=== PATIENT | female | born 1945 | race Caucasian/White ===

== ENCOUNTER 2017-12-26 07:48 | Outpatient (CLI) | payer MEDICARE ==
--- NOTE | 2018-01-01 12:26 | NM ---
RADIOIODINE THYROID SCAN AND UPTAKE: HISTORY: Nontoxic single thyroid nodule. RADIOPHARMACEUTICAL: 260 microcuries Iodine-123 administered orally. FINDINGS: Planar anterior and both anterior oblique images of the thyroid gland were obtained. No focal hot or cold nodules are seen. The 24 hour uptake measures 21% (normal 10-30%). IMPRESSION: No significant abnormalities are seen. Further evaluation with thyroid ultrasound would be helpful. POS: ELVIS
== END 2017-12-26 07:49 | disposition home or self-care (01) ==
LOC: NM 07:48
PROVIDERS: ATTEND Family Medicine
DX: E04.1 Nontoxic single thyroid nodule (principal)
CPT/HCPCS: 78014; A9516; A9582

== ENCOUNTER 2018-07-20 14:16 | Outpatient (CLI) | payer MEDICARE ==
--- NOTE | 2018-07-20 15:51 | ULT ---
THYROID SONOGRAM: HISTORY: Thyroid nodule. COMPARISON: Correlated with radioiodine nuclear medicine study from 12/27/2007. FINDINGS: Right thyroid lobe is 5.0 cm in length. Near the inferior pole is an oval well-circumscribed slightl y heterogeneous isoechoic nodule that is 1.8 x 1.1 x 0.8 cm. Smaller nodule at the mid portion is 0. 7 cm. Isthmus is 0.2 cm with a 0.8 cm heterogeneous partially cystic nodule. The left thyroid lobe is 4.5 cm. A group of small heterogeneous nodules near the mid portion measure s up to 2.0 cm length x 0.9 cm width. IMPRESSION: Multiple small nonspecific thyroid nodules. No dominant aggressive lesion is evident. POS: ELVIS
== END 2018-07-20 14:17 | disposition home or self-care (01) ==
LOC: BICULT 14:16
PROVIDERS: ATTEND Otolaryngology Plastic Surgery within the Head & Neck
DX: E04.1 Nontoxic single thyroid nodule (principal); E04.2 Nontoxic multinodular goiter
CPT/HCPCS: 76536

== ENCOUNTER 2018-12-24 09:14 | Outpatient (CLI) | payer MEDICARE ==
--- NOTE | 2018-12-24 10:02 | ULT ---
US Gallbladder RUQ History: Right upper quadrant pain Comparison: CT abdomen and pelvis 2012 Findings: Real-time grayscale and color evaluation of the right upper quadrant of the abdomen was per formed. Visualized portion of the aorta, IVC, and pancreas are unremarkable. Hepatic echotexture is unremarka ble. Liver is normal. There is a cyst within the caudate lobe. Gallbladder is normal. No pericholecystic fluid. Common bile duct is normal. Portal vein is patent wi th antegrade flow. Right kidney measures 9.6 x 4.6 x 4.9 cm without mass, hydronephrosis, or abnormal calcifications. Impression: Hepatic simple cyst otherwise normal exam. No evidence for acute gallbladder pathology.
== END 2018-12-24 09:15 | disposition home or self-care (01) ==
LOC: ULT 09:14
PROVIDERS: ATTEND Internal Medicine Gastroenterology
DX: R10.11 Right upper quadrant pain (principal); K76.89 Other specified diseases of liver
CPT/HCPCS: 76705

== ENCOUNTER 2020-03-20 13:06 | Outpatient (CLI) | payer MEDICARE ==
--- NOTE | 2020-03-20 13:59 | ULT ---
Exam: Thyroid ultrasound HISTORY: Adrenal gland disorder. Comparison 07/20/2018 FINDINGS: Thyroid isthmus measures 0.27 cm Right thyroid lobe 1.8 x 1.8 x 5.3 cm Left thyroid lobe 1.9 x 1.5 x 4.9 cm Thyroid nodules: Left thyroid lobe: Complete 0.7 cm nodule in the upper pole. Isoechoic solid nodule in the upper pole measuring 1.3 x 1.0 x 1.3 cm. .Isthmus: Complex 1 cm nodule. Solid 0.5 cm isoechoic nodule in the junction of the thyroid isthmus a nd left thyroid lobe measuring 0.6 cm Right thyroid lobe: Isoechoic solid nodule in the upper pole measuring 1.1 x 1.3 x 0.9 cm. Complex no dule in the midpole the left upper lobe measures 0.8 x 1.2 x 1.8 cm. Additional cystic and slightly complex lesions are noted in the lower pole of the left thyroid lobe. IMPRESSION: Multifocal nodularity throughout the thyroid gland. There are 2 solid nodules in the thyr oid gland which are TI-RADS level 4, moderately suspicious. Follow-up ultrasound in one year is recommended. Transcribed Date/Time: 03/20/2020 2:11 PM
--- NOTE | 2020-03-20 14:00 | BD ---
EXAM: Bone densitometry using DEXA HISTORY: 75 yo female. Screening for postmenopausal osteoporosis FINDINGS: L1--bone mineral density 0.923 g/sq cm; T score -0.6 ; Z score 1.5 L2--bone mineral density 0.930 g/sq cm; T score -0.9 ; Z score 1.4 L3--bone mineral density 0.984 g/sq cm; T score -0.9 ; Z score 1.5 L4--bone mineral density 0.949 g/sq cm; T score -1.0 ; Z score 1.5 Total L1-L4--bone mineral density 0.948 g/sq cm; T score -0.9 ; Z score 1.4 Left femoral neck--bone mineral density0.587; T score -2.4 ; Z score -0.3 Total proximal left femur--bone mineral density 0.745; T score -1.6 ; Z score 0.1 The 10 year fracture risk for a major osteoporotic fracture is 15% and for a hip fracture is 4.2%. IMPRESSION: Osteopenia
== END 2020-03-20 13:07 | disposition home or self-care (01) ==
LOC: BICULT 13:06
PROVIDERS: ATTEND Internal Medicine Endocrinology, Diabetes & Metabolism
DX: E04.2 Nontoxic multinodular goiter (principal); M85.89 Other specified disorders of bone density and structure, multiple sites
CPT/HCPCS: 76536; 77080

== ENCOUNTER 2020-12-02 15:28 | Outpatient (CLI) | payer MEDICARE | END 2020-12-02 15:29 | disposition home or self-care (01) | LOC: BICULT 15:28 | PROVIDERS: ATTEND Internal Medicine Endocrinology, Diabetes & Metabolism | DX: E04.1 Nontoxic single thyroid nodule (principal) | CPT/HCPCS: 76536 ==

== ENCOUNTER 2021-02-17 14:33 | Outpatient (CLI) | payer MEDICARE | END 2021-02-17 14:34 | disposition home or self-care (01) | LOC: TBSIIMAG 14:33 | PROVIDERS: ATTEND Family Medicine | DX: M47.22 Other spondylosis with radiculopathy, cervical region (principal); M48.02 Spinal stenosis, cervical region | CPT/HCPCS: 72141 ==

== ENCOUNTER 2021-03-22 09:40 | Outpatient (CLI) | payer MEDICARE | END 2021-03-22 09:41 | disposition home or self-care (01) | LOC: BICMAMMO 09:40 | PROVIDERS: ATTEND Internal Medicine Endocrinology, Diabetes & Metabolism | DX: M85.89 Other specified disorders of bone density and structure, multiple sites (principal) | CPT/HCPCS: 77080 ==